=== PATIENT | female | born 1985 | race Caucasian/White ===

== ENCOUNTER 2023-07-14 05:05 | Emergency (ER) | payer BC ==
[~2023-07-14] VITALS: Ht 170.2 cm; Wt 136.4 kg
[~2023-07-14 05:05] MED LIST: ROXICODONE 55 MG/TAB PO
[2023-07-14 05:17] VITALS: TEMP 98.1
[2023-07-14] MEDS ORDERED: LORazepam 2 MG/ML 1 ML VIAL IV ONE (06:45)
[2023-07-14 06:57] LABS: BASO # 0.1 K/mm3 (0.0-0.2); BASO % 1.4 % (0.0-2.0); EOS # 0.2 K/mm3 (0.0-0.7); EOS % 2.6 % (0.0-4.0); GRAN # 3.5 K/mm3 (1.4-6.5); GRAN % 61.7 % (42.2-75.2); HEMATOCRIT 41.1 % (37.0-47.0); HEMOGLOBIN 13.9 g/dl (12.5-16.0); LYMPH # 1.5 K/mm3 (1.2-3.4); LYMPH % 26.1 % (20.0-51.0); MEAN CELL VOLUME 90 fl (80.0-100.0); MEAN CORPUSCULAR HEMOGLOBIN 30 pg (27-31); MEAN CORPUSCULAR HGB CONC 34 g/dl (33.0-37.0); MONO # 0.5 K/mm3 (0.1-0.6); PLATELET COUNT 275 K/mm3 (130-400); RED BLOOD COUNT 4.59 M/mm3 (4.10-5.30)
[2023-07-14] MEDS ORDERED: ATARAX 25MG25 MG/TAB PO (07:51)
[2023-07-14 08:29] LABS: ALANINE AMINOTRANSFERASE 30 U/L (0-55); ALBUMIN 3.4 g/dL (3.5-5.0); ALKALINE PHOSPHATASE 81 U/L (40-150); ANION GAP 7 mmol/L (7-16); AST,SGOT 26 U/L (5-34); BLOOD UREA NITROGEN 8 mg/dL (7-19); CALCIUM 9.3 mg/dL (8.4-10.2); CHLORIDE 109 mEq/L (98-107); CREATININE, serum 0.77 mg/dL (0.57-1.11); GLUCOSE 88 mg/dL (70-99); POTASSIUM 3.9 mEq/L (3.5-4.5); SODIUM 140 mEq/L (136-145); TOTAL PROTEIN 7.2 g/dl (6.2-8.1)
[2023-07-14 08:37] LABS: TROPONIN-I < 0.010 ng/mL (0.00-0.033)
[2023-07-14 08:55] LABS: BILIRUBIN,TOTAL 0.7 mg/dL (0.2-1.2)
[2023-07-14 09:10] VITALS: BP 150/96; PULSE 72
== END 2023-07-14 09:57 | disposition home or self-care (01) ==
LOC: COL.ER 05:05
PROVIDERS: Emergency Medicine
DX: R07.89 Other chest pain (principal); R00.2 Palpitations; F41.9 Anxiety disorder, unspecified; F32.A Depression, unspecified; Z79.899 Other long term (current) drug therapy
CPT/HCPCS: J2060